=== PATIENT | male | born 2000 | race Hispanic/Latino ===

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

== ENCOUNTER 2022-04-27 13:22 | Emergency (ER) | payer SELFPAY ==
[2022-04-27] MEDS ORDERED: ONDANSETRON 4 MG/2 ML VIAL ONE ×2 (13:57→16:59)
[2022-04-27] MEDS ORDERED: NA CHLORIDE 0.9% 1,000 ML ONE ×3 (13:57→16:59)
[2022-04-27 14:07] LABS: Absolute Lymphocytes (CBC) 1.1 K/uL (0.7-4.9); Lymphocytes % 11.8 % (15.3-44.8); MCV 86.8 fL (80-100)
[2022-04-27 14:11] LABS: Protime INR 1.2
[2022-04-27] MEDS ORDERED: FAMOTIDINE 20 MG/2 ML VIAL IV ONE (14:24)
[2022-04-27 14:33] LABS: ALT/SGPT 31 U/L (12-78); AST/SGOT 19 U/L (15-37); Albumin 4.5 g/dL (3.4-5.0); Alkaline Phosphatase 64 U/L (45-117); BUN Blood Urea Nitrogen 16 mg/dL (7-18); Bicarbonate 20 mmol/L (21-32); Bilirubin Direct 0.2 mg/dL (0-0.2); Bilirubin Total 0.7 mg/dL (0.2-1.0); Glomerular Filtration Rate 114 ml/min (=/>90); Glucose Level 117 mg/dL (74-106); Magnesium 1.6 mg/dL (1.8-2.4); NT PRO-BNP 42 pg/mL (<125); Potassium 4.1 mmol/L (3.5-5.1); Protein, Total 8.7 g/dL (6.4-8.2); Sodium Level 137 mmol/L (136-145); Troponin High Sensitivity < 3.0 pg/mL (<58.9)
[2022-04-27 14:53] LABS: Urine Blood Negative (Negative); Urine Glucose Negative (Negative); Urine Protein Negative (Negative); Urine Specific Gravity >=1.030 (1.005-1.030)
[2022-04-27 15:14] LABS: Barbiturates NEGATIVE (NEGATIVE); Benzodiazepines NEGATIVE (NEGATIVE); Cocaine NEGATIVE (NEGATIVE); METHAMPHETAM NEGATIVE (NEGATIVE); Methadone NEGATIVE (NEGATIVE); Opiates NEGATIVE (NEGATIVE); Phencyclidine NEGATIVE (NEGATIVE); THC Cannibis POSITIVE (NEGATIVE)
[2022-04-27] MEDS ORDERED: Magnesium Sulfate 2gm IVPB 2 G/50 ML BAG IV ONE (15:14)
--- NOTE | 2022-04-27 15:20 | RAD REPORT ---
EXAM DESCRIPTION: CT - Abdomen Pelvis W Contrast - 04/27/2022 3:01 pm CLINICAL HISTORY: Epigastric pain COMPARISON: No comparisons TECHNIQUE: Biphasic, helical CT imaging of the abdomen and pelvis was performed following 100 ml non -ionic IV contrast. No oral contrast administered. All CT scans are performed using dose optimization technique as appropriate and may include automated exposure control or mA/KV adjustment according to patient size. FINDINGS: No suspicious findings in the lung bases. The liver, spleen, and pancreas show no suspicious findings. Liver attenuation is borderline to mildl y fatty infiltrated. Gallbladder and biliary tree are also without suspicious finding. Symmetric renal function is seen with no hydronephrosis or suspicious renal mass. No pyelonephritis o r acute parenchymal process. Urinary bladder is contracted. This accentuates wall thickness. Cystitis cannot be excluded but would need corresponding clinical or laboratory findings. No adrenal abnormal ities. No dilated bowel loops or bowel wall thickening. No appendicitis findings. No active GI process seen. No free air, free fluid or inflammatory stranding. No hernia, mass or bulky lymphadenopathy. No suspicious bony findings. IMPRESSION: Contrast enhanced CT abdomen and pelvis showing no acute or emergent finding. Borderline to mild fatty infiltration of the liver.
--- NOTE | 2022-04-27 15:21 | RAD REPORT ---
EXAM DESCRIPTION: RAD - Chest Single View - 04/27/2022 2:42 pm CLINICAL HISTORY: CHEST PAIN COMPARISON: None TECHNIQUE: AP portable chest image was obtained 04/27/2022 2:42 pm . FINDINGS: Lungs are clear. Heart and vasculature are normal. No measurable pleural effusion and no p neumothorax. No acute bony abnormality seen. No acute aortic findings suspected. IMPRESSION: No acute cardiopulmonary process.
--- NOTE | 2022-04-27 19:00 | EDPHYS ---
Physician Documentation [facility] Name: Jareth Scott Age: 22 yrs Sex: Male : 2000 Arrival Date: 04/27/2022 Time: 13:25 Bed 8 Private MD: ED Physician Franklin Obrien HPI: 04/27 13:46 This 22 yrs old Male presents to ER via Wheelchair with complaints of Chest pm1 pain, Vomiting. 13:46 The patient or guardian reports chest pain that is located primarily in the mid-sternal pm1 area and epigastric area. The pain does not radiate. Associated signs and symptoms: Pertinent positives: nausea, shortness of breath, vomiting, Pertinent negatives: cough. The chest pain is described as aching. Duration: The patient or guardian reports a single episode, that is still ongoing. Modifying factors: The symptoms are alleviated by nothing. the symptoms are aggravated by nothing. Severity of pain: in the emergency department the pain is actually worse. The patient has not experienced similar symptoms in the past. The patient has not recently seen a physician. Patient presents to the ER with complaints of chest pain and epigastric pain ongoing since this morning. Patient reports he woke up with vomiting. Patient used marijuana and alcohol recently due to Patient's birthday. Historical: - Allergies: 13:37 Something that starts with an A; ss - Home Meds: 13:37 None [Active]; ss - PMHx: 13:37 None; ss - PSHx: 13:37 None; ss - Immunization history:: Client reports having NOT received the Covid vaccine. - Social history:: Smoking status: Patient denies any tobacco usage or history of. Patient uses Marijuana, quit 2 days ago. ROS: 13:46 Constitutional: Negative for fever, chills, and weight loss. pm1 13:46 Back: Negative for injury and pain, MS/Extremity: Negative for injury and deformity, Skin: Negative for injury, rash, and discoloration, Neuro: Negative for headache, weakness, numbness, tingling, and seizure. 13:46 Cardiovascular: Positive for chest pain, Negative for edema, palpitations. 13:46 Respiratory: Positive for shortness of breath, Negative for cough. 13:46 Abdomen/GI: Positive for abdominal pain, nausea and vomiting, Negative for diarrhea, constipation. 13:46 All other systems are negative. Exam: 13:46 Constitutional: This is a well developed, well nourished patient who is awake, alert, pm1 and in no acute distress. Head/Face: Normocephalic, atraumatic. 13:46 Back: No spinal tenderness. No costovertebral tenderness. Full range of motion. Skin: Warm, dry with normal turgor. Normal color with no rashes, no lesions, and no evidence of cellulitis. MS/ Extremity: Pulses equal, no cyanosis. Neurovascular intact. Full, normal range of motion. 13:46 Chest/axilla: Exam negative for acute changes, Inspection: normal, Palpation: is normal, tenderness, that is mild, of the mid-sternal area, that totally reproduces the patient's complaints. 13:46 Cardiovascular: Exam negative for acute changes, Rate: normal, Rhythm: regular, Pulses: no pulse deficits are appreciated. 13:46 Respiratory: Exam negative for acute changes, respiratory distress, shortness of breath, Breath sounds: are clear throughout. 13:46 Abdomen/GI: Inspection: abdomen appears normal, Palpation: soft, in all quadrants, moderate abdominal tenderness, in the epigastric area. 13:46 Neuro: Exam negative for acute changes, Orientation: is normal, Mentation: is normal, Motor: is normal, moves all fours. Vital Signs: 13:35 BP 118 / 72; Pulse 85; Resp 17; Temp 97.6(O); Pulse Ox 100% on R/A; Weight 81.65 kg; ss Height 5 ft. 11 in. (180.34 cm); Pain 10/10; 16:33 BP 126 / 78; Pulse 77; Resp 17; Pulse Ox 100% ; strange 17:57 BP 130 / 76; Pulse 90; Resp 19; Pulse Ox 100% on R/A; strange 13:35 Body Mass Index 25.10 (81.65 kg, 180.34 cm) MDM: 13:52 Patient medically screened. pm1 18:57 Data reviewed: vital signs. Data interpreted: Pulse oximetry: on room air is 100 %. pm1 Interpretation: normal. Counseling: I had a detailed discussion with the patient and/or guardian regarding: the historical points, exam findings, and any diagnostic results supporting the discharge/admit diagnosis, lab results, radiology results, the need for outpatient follow up, to return to the emergency department if symptoms worsen or persist or if there are any questions or concerns that arise at home. 04/27 13:42 Order name: UDS; Complete Time: 15:46 pm1 04/27 13:42 Order name: Basic Metabolic Panel; Complete Time: 14:37 pm1 04/27 13:42 Order name: CBC with Diff; Complete Time: 14:37 pm1 04/27 13:42 Order name: LFT's; Complete Time: 14:37 pm1 04/27 13:42 Order name: Magnesium; Complete Time: 14:37 pm1 04/27 13:42 Order name: NT PRO-BNP; Complete Time: 14:37 pm1 04/27 13:42 Order name: PT-INR; Complete Time: 14:37 pm1 04/27 13:42 Order name: Troponin HS; Complete Time: 14:37 pm1 04/27 13:42 Order name: ETOH Level; Complete Time: 14:47 pm1 04/27 13:42 Order name: Acetaminophen; Complete Time: 14:37 pm1 04/27 13:42 Order name: Ptt, Activated; Complete Time: 14:37 pm1 04/27 13:42 Order name: Salicylate; Complete Time: 14:37 pm1 04/27 13:42 Order name: Urine Dipstick-Ancillary (obtain specimen); Complete Time: 16:23 pm04/27 13:42 Order name: XRAY Chest (1 view); Complete Time: 15:46 pm1 04/27 13:42 Order name: EKG; Complete Time: 13:43 pm04/27 13:42 Order name: Cardiac monitoring; Complete Time: 14:03 pm04/27 13:42 Order name: EKG - Nurse/Tech; Complete Time: 14:03 pm04/27 13:42 Order name: IV Saline Lock; Complete Time: 14:03 pm04/27 13:49 Order name: CT Abd/Pelvis - IV Contrast Only; Complete Time: 15:46 pm04/27 14:53 Order name: Urine Dipstick-Ancillary; Complete Time: 15:46 EDMS 04/27 13:42 Order name: Labs collected and sent; Complete Time: 14:04 pm1 04/27 13:42 Order name: O2 Per Protocol; Complete Time: 14:07 pm1 04/27 13:42 Order name: O2 Sat Monitoring; Complete Time: 14:07 pm1 Administered Medications: 14:06 Drug: NS 0.9% 1000 ml Route: IV; Rate: 1000 ml; Site: right antecubital; 19:18 Follow up: Response: No adverse reaction; IV Status: Completed infusion; IV Intake: as6 1000ml 14:07 Drug: Zofran (Ondansetron) 4 mg Route: IVP; Site: right antecubital; strange 14:07 Follow up: Response: No adverse reaction strange 14:19 Drug: Pepcid (famotidine) 20 mg Route: IVP; Site: right antecubital; strange 14:19 Follow up: Response: No adverse reaction strange 15:16 Drug: NS 0.9% 1000 ml Route: IV; Rate: 1000 ml; Site: right antecubital; strange 19:19 Follow up: Response: No adverse reaction; IV Status: Completed infusion; IV Intake: as6 1000ml 15:16 Drug: Magnesium Sulfate 1 grams Route: IVPB; Infused Over: 1 hrs; Site: right strange antecubital; 19:20 Follow up: Response: No adverse reaction; IV Status: Completed infusion; IV Intake: as6 100ml 17:07 Drug: Zofran (Ondansetron) 4 mg Route: IVP; Site: right antecubital; strange 17:07 Follow up: Response: No adverse reaction strange 17:07 Drug: NS 0.9% 1000 ml Route: IV; Rate: 1000 ml; Site: right antecubital; strange 19:20 Follow up: Response: No adverse reaction; IV Status: Completed infusion; IV Intake: as6 1000ml Disposition: 04/28 09:53 Co-signature as Attending Physician, Franklin Obrien MD I agree with the assessment and kdr plan of care. Disposition Summary: 04/27/22 18:58 Discharge Ordered Location: Home pm1 Condition: Stable pm1 Problem: new pm1 Symptoms: have improved pm1 Diagnosis - Cannabis abuse pm1 - Vomiting pm1 - Abdominal pain, unspecified pm1 - Dehydration pm1 Followup: pm1 - With: Emergency Department - When: As needed - Reason: Worsening of condition Followup: pm1 - With: Private Physician - When: 2 - 3 days - Reason: Recheck today's complaints, Continuance of care, Re-evaluation by your physician Discharge Instructions: - Discharge Summary Sheet pm1 - Abdominal Pain, Adult pm1 - Dehydration, Adult pm1 - Cannabis Use Disorder pm1 - Rehydration, Adult pm1 - Vomiting, Adult pm1 - Cannabinoid Hyperemesis Syndrome pm1 Forms: - Medication Reconciliation Form pm1 - Thank You Letter pm1 - Antibiotic Education pm1 - Prescription Opioid Use pm1 Prescriptions: - ondansetron 4 mg Oral tablet,disintegrating - place 1 tablet by TRANSLINGUAL route every 8 hours As needed; 12 tablet; pm1 Refills: 0, Product Selection Permitted - dicyclomine 20 mg Oral Tablet - take 1 tablet by ORAL route every 6 hours As needed; 20 tablet; Refills: 0, pm1 Product Selection Permitted Signatures: Dispatcher [employer] Franklin Cantrell MD MD kdr Smirch, Shelby, RN RN Costa Joshua NP [employer] ACCOUNT EXECUTIVE pm1 Magui-Maral Saxena RN RN ha Slawson, Ashby RN as6
--- NOTE | 2022-04-27 19:00 | ER ---
Nurse's Notes [facility] [place] Name: Jareth Scott Age: 22 yrs Sex: Male : 2000 Arrival Date: 04/27/2022 Time: 13:25 Bed 8 Private MD: Diagnosis: Cannabis abuse;Vomiting;Abdominal pain, unspecified;Dehydration Presentation: 04/27 13:35 Chief complaint: Patient states: Chest discomfort and vomiting that began yesterday. Pt ss reports he quit smoking marijuana 2 days ago, last drank alcohol 2 days ago. Coronavirus screen: Client denies travel out of the [place] in the last 14 days. Ebola Screen: Patient denies exposure to infectious person. Patient denies travel to an Ebola-affected area in the 21 days before illness onset. Initial Sepsis Screen: Does the patient meet any 2 criteria? No. Patient's initial sepsis screen is negative. Does the patient have a suspected source of infection? No. Patient's initial sepsis screen is negative. Risk Assessment: Do you want to hurt yourself or someone else? Patient reports no desire to harm self or others. Onset of symptoms was April 26, 2022. 13:35 Method Of Arrival: Wheelchair ss 13:35 Acuity: WILEY 3 ss Triage Assessment: 13:40 General: Appears uncomfortable, Behavior is calm, cooperative. Respiratory: Onset: The strange symptoms/episode began/occurred gradually, the patient has moderate shortness of breath. Historical: - Allergies: 13:37 Something that starts with an A; ss - Home Meds: 13:37 None [Active]; ss - PMHx: 13:37 None; ss - PSHx: 13:37 None; ss - Immunization history:: Client reports having NOT received the Covid vaccine. - Social history:: Smoking status: Patient denies any tobacco usage or history of. Patient uses Marijuana, quit 2 days ago. Screenin:39 Abuse screen: Denies threats or abuse. Denies injuries from another. Nutritional strange screening: No deficits noted. Tuberculosis screening: No symptoms or risk factors identified. Fall Risk None identified. Assessment: 13:39 Pain: Complains of pain in abdomen. Cardiovascular: Rhythm is regular. Respiratory: strange Airway is patent Respiratory effort is even, unlabored, Breath sounds are clear bilaterally. GI: Abdomen is flat, non-distended, Bowel sounds present X 4 quads. Abd is soft and non tender Reports nausea, vomiting. Vital Signs: 13:35 BP 118 / 72; Pulse 85; Resp 17; Temp 97.6(O); Pulse Ox 100% on R/A; Weight 81.65 kg; ss Height 5 ft. 11 in. (180.34 cm); Pain 10/10; 16:33 BP 126 / 78; Pulse 77; Resp 17; Pulse Ox 100% ; strange 17:57 BP 130 / 76; Pulse 90; Resp 19; Pulse Ox 100% on R/A; strange 13:35 Body Mass Index 25.10 (81.65 kg, 180.34 cm) ED Course: 13:25 Patient arrived in ED. mr 13:37 Costa Berg NP is PHCP. pm1 13:37 Franklin Obrien MD is Attending Physician. pm1 13:37 Triage completed. ss 13:37 Arm band placed on left wrist. ss 13:38 Maral Escoto, PLACIOD is Primary Nurse. strange 13:39 Patient has correct armband on for positive identification. Bed in low position. strange 13:39 No provider procedures requiring assistance completed. strange 14:03 Inserted saline lock: 18 gauge in right antecubital area, using aseptic technique. Blood collected. 14:03 Acetaminophen Sent. zm 14:03 Ptt, Activated Sent. zm 14:03 EKG done, by ED staff, reviewed by Costa Berg NP. mb7 14:03 Salicylate Sent. zm 14:03 ETOH Level Sent. zm 14:04 Basic Metabolic Panel Sent. zm 14:04 CBC with Diff Sent. zm 14:04 LFT's Sent. zm 14:04 NT PRO-BNP Sent. zm 14:04 PT-INR Sent. zm 14:04 Troponin HS Sent. zm 14:44 XRAY Chest (1 view) In Process Unspecified. EDMS 15:03 CT Abd/Pelvis - IV Contrast Only In Process Unspecified. EDMS 19:18 IV discontinued, intact, bleeding controlled, No redness/swelling at site. Pressure as6 dressing applied. Administered Medications: 14:06 Drug: NS 0.9% 1000 ml Route: IV; Rate: 1000 ml; Site: right antecubital; strange 19:18 Follow up: Response: No adverse reaction; IV Status: Completed infusion; IV Intake: as6 1000ml 14:07 Drug: Zofran (Ondansetron) 4 mg Route: IVP; Site: right antecubital; strange 14:07 Follow up: Response: No adverse reaction strange 14:19 Drug: Pepcid (famotidine) 20 mg Route: IVP; Site: right antecubital; strange 14:19 Follow up: Response: No adverse reaction strange 15:16 Drug: NS 0.9% 1000 ml Route: IV; Rate: 1000 ml; Site: right antecubital; strange 19:19 Follow up: Response: No adverse reaction; IV Status: Completed infusion; IV Intake: as6 1000ml 15:16 Drug: Magnesium Sulfate 1 grams Route: IVPB; Infused Over: 1 hrs; Site: right strange antecubital; 19:20 Follow up: Response: No adverse reaction; IV Status: Completed infusion; IV Intake: as6 100ml 17:07 Drug: Zofran (Ondansetron) 4 mg Route: IVP; Site: right antecubital; strange 17:07 Follow up: Response: No adverse reaction strange 17:07 Drug: NS 0.9% 1000 ml Route: IV; Rate: 1000 ml; Site: right antecubital; strange 19:20 Follow up: Response: No adverse reaction; IV Status: Completed infusion; IV Intake: as6 1000ml Medication: 13:39 VIS not applicable for this client. strange Intake: 19:18 IV: 1000ml; Total: 1000ml. as6 19:19 IV: 1000ml; Total: 2000ml. as6 19:20 IV: 100ml; Total: 2100ml. as6 19:20 IV: 1000ml; Total: 3100ml. as6 Outcome: 18:58 Discharge ordered by . pm1 19:18 Discharged to home ambulatory. as6 19:18 Condition: stable 19:18 Discharge instructions given to patient, Instructed on discharge instructions, follow up and referral plans. medication usage, Demonstrated understanding of instructions, follow-up care, medications, Prescriptions given X 2. 19:21 Patient left the ED. as6 Signatures: Dispatcher [employer] Sosa London Shelby, RN RN ss Marinas, Patrick, [employer]ESS OPERATOR pm1 Jakob Green RN RN as6 Sosa Zayas mb7 Maral Escoto, RN RN alexandr [place], Anita zm
[2022-04-27 19:38] VITALS: TEMP 97.6; O2SAT 100
[2022-04-27 19:43] VITALS: BP 130/76
--- NOTE | 2022-04-29 08:00 | EKG ---
Test Date: 2022-04-27 Test Time: 13:58:43 Driver Operator: MB MEASUREMENT RESULTS: Intervals: Rate: 84 ME: 160 QRSD: 102 QT: 398 QTc: 470 [place]: P: 79 ME: 160 QRS: 88 T: 77 INTERPRETIVE STATEMENTS: Normal sinus rhythm Right atrial enlargement ST elevation, consider early repolarization, pericarditis, or injury Abnormal ECG No previous ECG available for comparison Electronically Signed On 04-29-22 07:55:48 CDT by Akhil Lewis
== END 2022-04-27 19:21 | disposition home or self-care (01) ==
LOC: ER 13:22
DX: R10.13 Epigastric pain (principal); F12.10 Cannabis abuse, uncomplicated; E86.0 Dehydration; R11.10 Vomiting, unspecified
CPT/HCPCS: 36415; 71045; 74177; 80048; 80076; 80307; 80320; 80329; 81003; 83735; 83880; 84484; 85025; 85610; 85730; 93005; 96361; 96365; 96366; 96375; 99284; J2405; J3475; J3490; J7030; Q9967